=== PATIENT | male | born 1960 | race Caucasian/White ===

== ENCOUNTER 2020-12-24 12:31 | Observation (INO) | payer OTHER ==
[~2020-12-24] VITALS: Ht 180.3 cm; Wt 97.2 kg
[2020-12-24 13:18] LABS: BASO % 0.4 % (0.0-2.0); EOS # 0.1 (0.0-0.7); EOS % 0.9 % (0-4.0); GRAN # 5.9 (1.4-6.5); GRAN % 75.4 % (42.2-75.2); HEMATOCRIT 39.2 % (42.0-52.0); HEMOGLOBIN 12.8 g/dl (13.5-18.0); LYMPH # 1.2 (1.2-3.4); LYMPH % 15.1 % (20.0-51.0); MEAN CELL VOLUME 88 fl (80.0-100.0); MEAN CORPUSCULAR HEMOGLOBIN 29 pg (27.0-31.0); MEAN CORPUSCULAR HGB CONC 33 g/dl (33.0-37.0); MEAN PLATELET VOLUME 9.8 fl (7.4-10.4); MONO # 0.6 (0.1-0.6); MONO % 7.8 % (1.7-9.3); PLATELET COUNT 211 K/mm3 (130-400); RED BLOOD COUNT 4.44 M/mm3 (4.20-5.60); REDCELL DISTRIBUTION WIDTH-CV 13.5 % (11.5-14.5)
[2020-12-24 13:31] LABS: ALANINE AMINOTRANSFERASE 38 U/L (4-49); ALBUMIN 4.3 gm/dL (3.5-5.0); ALKALINE PHOSPHATASE 54 U/L (50-136); ANION GAP 7 mmol/L (7-16); AST,SGOT 40 U/L (15-37); BILIRUBIN,TOTAL 0.8 mg/dL (0.0-1.0); BLOOD UREA NITROGEN 40 mg/dL (9-20); CALCIUM 9.6 mg/dL (8.4-10.2); CARBON DIOXIDE 25 mmol/L (22-30); CHLORIDE 106 mmol/L (98-107); CREATININE, serum 2.88 (0.66-1.25); GLUCOSE 147 mg/dL (74-106); POTASSIUM 5.2 mmol/L (3.4-5.0); SODIUM 138 mmol/L (137-145); TOTAL PROTEIN 7.6 gm/dL (6.4-8.2)
[2020-12-24 13:47] LABS: TROPONIN-I < 0.012 ng/mL (0.000-0.035)
[2020-12-24 15:24] LABS: COLLECTION METHOD CLEAN CATCH
[2020-12-24 15:31] LABS: MUCOUS Present /lpf; PH 5 (5-8); URINE APPEARANCE Hazy; URINE BACTERIA None Seen /hpf; URINE BILIRUBIN Negative (NEGATIVE); URINE BLOOD Negative (NEGATIVE); URINE COLOR Yellow; URINE GLUCOSE Negative (NEGATIVE); URINE KETONE Negative (NEGATIVE); URINE LEUKOCYTE ESTERASE Negative (NEGATIVE); URINE NITRATE Negative (NEGATIVE); URINE PROTEIN(semi-quant) 1+ (NEGATIVE); URINE RBC 0-2 /hpf
[2020-12-24] MEDS ORDERED: ASPIRIN 81M81 MG/TA2 PO (15:55)
[2020-12-24] MEDS ORDERED: NORVASC 10MG10 MG PO (15:55)
[2020-12-24] MEDS ORDERED: WELLBUTRIN SR150 M1 PO (15:56)
[2020-12-24] MEDS ORDERED: HYGROTON 2525 MG/TAB PO (15:56)
[2020-12-24] MEDS ORDERED: GLUCOPHAGE500 MG/TAB PO (15:57)
[2020-12-24] MEDS ORDERED: NORMODYNE200 MG PO (15:57)
[2020-12-24] MEDS ORDERED: PRINIVIL40 MG PO (15:57)
[2020-12-24 16:35] VITALS: BP 125/75; PULSE 85; TEMP 98.9
[2020-12-24 16:38] VITALS: BP 125/75; PULSE 85; TEMP 98.9
--- NOTE | 2020-12-24 16:47 | NUR ---
PT ADMITTED AT THIS. NO S/S OF DISTRESS AT THIS TIME. PT DENIES HAVING CHEST PAIN. TELE MONITOR IN PLACE. PT ORIENTED TO ROOM. PENDING URINE COLLECTION. CALL-LIGHT IN REACH. BED IN LOW POSITION. WILL CONTINUE TO MONITOR.
[2020-12-24 17:32] LABS: TROPONIN-I 6 HR POST INITIAL < 0.012 ng/mL (0.000-0.034)
[2020-12-24 19:26] VITALS: BP 123/70; PULSE 89; TEMP 98.5
--- NOTE | 2020-12-24 21:39 | NUR ---
Pt is really difficult when it comes to meds.He refused his heparin and stated he takes only aspirin. Vss stable. Pain rated 0/10. Will continue to monitor.
[2020-12-25 01:04] VITALS: BP 137/74; PULSE 81; TEMP 99
[2020-12-25 05:15] VITALS: BP 124/80; PULSE 75; TEMP 98.8
[2020-12-25 06:46] LABS: CALCIUM 8.3 mg/dL (8.4-10.2); CREATININE, serum 1.75 (0.66-1.25); POTASSIUM 4.5 mmol/L (3.4-5.0)
[2020-12-25 08:32] VITALS: BP 126/78; PULSE 71; TEMP 98.4
--- NOTE | 2020-12-25 09:11 | NUR ---
SW met with the patient to discuss discharge plan. The patient lives in [place], [place] with his , Doris (ph#[phone]). He is in [place] for his job. 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 He has been staying at the [facility], while here. He reports independence with ADLs and does not have any DME. The patient's PCP is a Dr. Pink in [place] and he receives his medications from [facility]. The patient does not have a DPOA-HC and he was not interested in completing one while here. The patient states that he will probably return back to his hotel upon discharge. He states that his is on her way up here from [place] now. No additional needs at this time. *Discharge plan: home with *
[2020-12-25 10:29] LABS: SQUAMOUS EPITHELIAL None Seen /hpf; URINE BACTERIA None Seen /hpf; URINE RBC None Seen /hpf; URINE WBC None Seen /hpf
--- NOTE | 2020-12-25 10:58 | NUR ---
First visit from the student dean. No needs right now.
[2020-12-25 11:36] VITALS: BP 124/73; PULSE 70; TEMP 98.1
--- NOTE | 2020-12-25 16:07 | NUR ---
0700 PT RECEIVED RESTING IN BED. NO S/S OF DISTRESS. PT DENIES HAVING CHEST PAIN. PT REMINDED THAT HE NEEDS TO NOT DRINK OR EAT ANYTHING FOR HIS LEXISCAN THIS MORNING. 0900 INFORMED FROM [facility] THAT LEXISCAN WILL NOT BE DONE FOR THE PT TODAY. 1000 SPOUSE AT THE BEDSIDE AND STATES THAT SHE WILL TRY AND BRING PT'S HOME METFORMIN MEDICATION FOR THE PT FOR US TO HAVE IT REORDER. 1030 PROVIDER AND TEAM ROUNDED AT THE BEDSIDE WITH PT AND HIS SPOUSE. OK GIVEN FOR PT TO EAT. 1200 PT ATE HIS MEAL. NO S/S OF DISTRESS NOTICED. CALL-LIGHT IN REACH. BED IN LOW POSITION. WILL CONTINUE TO MONITOR.
[2020-12-25 16:52] VITALS: BP 114/86; BP 135/78; PULSE 106; PULSE 71; TEMP 98.4
[2020-12-25 20:03] VITALS: BP 121/76; PULSE 73; TEMP 98.6
--- NOTE | 2020-12-25 22:30 | NUR ---
Pt seems more compliant today. He was ok to get his heparin today. pain rated 0/10. Vss. Will continue to monitor.
[2020-12-26] VITALS (13 sets, daily range): BP systolic 106–143; BP diastolic 70–88; PULSE 66–87; TEMP 97.7–98.2
[2020-12-26 06:54] LABS: BASO % 0.4 % (0.0-2.0); EOS # 0.1 (0.0-0.7); EOS % 2.2 % (0-4.0); GRAN # 2.8 (1.4-6.5); GRAN % 61.9 % (42.2-75.2); HEMOGLOBIN 11.4 g/dl (13.5-18.0); LYMPH # 1.1 (1.2-3.4); LYMPH % 24.3 % (20.0-51.0); MEAN CELL VOLUME 88 fl (80.0-100.0); MEAN CORPUSCULAR HEMOGLOBIN 29 pg (27.0-31.0); MEAN CORPUSCULAR HGB CONC 33 g/dl (33.0-37.0); MEAN PLATELET VOLUME 9.8 fl (7.4-10.4); MONO # 0.5 (0.1-0.6); PLATELET COUNT 167 K/mm3 (130-400); RED BLOOD COUNT 3.92 M/mm3 (4.20-5.60); REDCELL DISTRIBUTION WIDTH-CV 13.2 % (11.5-14.5)
[2020-12-26 06:58] LABS: HEMATOCRIT 34.4 % (42.0-52.0)
[2020-12-26 07:00] LABS: MUCOR RACEMOSUS ALLERGEN COUNT <0.10 kU/L (())
[2020-12-26 07:23] LABS: CALCIUM 8.7 mg/dL (8.4-10.2); CHOLESTEROL RISK RATIO 5.4; CREATININE, serum 1.29 (0.66-1.25); POTASSIUM 4.6 mmol/L (3.4-5.0)
--- NOTE | 2020-12-26 08:20 | NUR ---
Pt awake and alert upon entry sitting in the recliner, no C/O pain at this time. Shift assessment complete, left Pt call light in reach.
--- NOTE | 2020-12-26 11:52 | NUR ---
NOTIFIED OF PATIENT HAVING CHEST PAIN AND NECK PAIN DURING TEST.
--- NOTE | 2020-12-26 20:36 | NUR ---
ALERT ANDOX4. DENIES ANY CHESTPAIN, LIGHTHEAD OR DIZZY. NS GOING AT 75MLS RT FA TO FLUSH KIDNEYS FROM CONTRAST TODAY. PT NOT HAPPY ABOUT STAYING BUT PLEASENT W NURSING, THOUGHT HE WAS GOING TO BE DC AFTER TEST TODAY. PM MEDS GIVEN. CALL LIGHT WI REACH. NEEDS MET.
--- NOTE | 2020-12-26 21:11 | NUR ---
TELE HAD CALLED TO SEE IF WE COULD APPLY HEART MONITOR. PT STATES THERE IS NOTHING WRONG W MY HEART DAY SHIFT NURSE WAS SUPPOSE TO GET THAT DISCONTINUED. CALLED JANELLE MEIER TO GET VELASQUEZ WAS BUSY WILL CALL NURSE BACK.
--- NOTE | 2020-12-26 22:04 | NUR ---
ORDERS FOR DIET AND INSULIN MOD SLIDING SCALE TO BE PLACED, REVIEW MED REC AND REPORTED FALCON CATH ALONG W CARDIZEM GTT RATE. DR VILLARREAL WILL SEE IN AM.
[2020-12-27 04:26] VITALS: BP 137/79; PULSE 72; TEMP 97.8
--- NOTE | 2020-12-27 05:42 | NUR ---
Rested through the night without incident. Melvin Rodriguez today . Needs met.
[2020-12-27 07:12] LABS: BASO % 0.5 % (0.0-2.0); EOS # 0.1 (0.0-0.7); GRAN # 2.7 (1.4-6.5); GRAN % 63.6 % (42.2-75.2); HEMOGLOBIN 11.8 g/dl (13.5-18.0); LYMPH # 0.9 (1.2-3.4); LYMPH % 20.9 % (20.0-51.0); MEAN CELL VOLUME 90 fl (80.0-100.0); MEAN CORPUSCULAR HEMOGLOBIN 29 pg (27.0-31.0); MEAN CORPUSCULAR HGB CONC 32 g/dl (33.0-37.0); MONO # 0.5 (0.1-0.6); MONO % 11.8 % (1.7-9.3); PLATELET COUNT 169 K/mm3 (130-400); RED BLOOD COUNT 4.09 M/mm3 (4.20-5.60); REDCELL DISTRIBUTION WIDTH-CV 13.2 % (11.5-14.5)
[2020-12-27 07:13] LABS: CALCIUM 8.4 mg/dL (8.4-10.2); CREATININE, serum 1.33 (0.66-1.25); HEMATOCRIT 36.6 % (42.0-52.0); POTASSIUM 4.4 mmol/L (3.4-5.0)
[2020-12-27 07:36] VITALS: BP 148/88; PULSE 70; TEMP 98.2
--- NOTE | 2020-12-27 08:11 | NUR ---
PT RESTING IN RECLINER. NS RUNNING AT 75ML/HR. HEART RATE AND RHYTHM NORMAL. ALL LUNG FIELD CLEAR TO AUSCULTATION. PATIENT DENIES ANY PAIN AT THIS TIME, STATES HE JUST HAS DISCOMFORT. MORNING MEDICATIONS GIVEN. PT STATES HE IS EAGER TO BE DISCHARGED. NO OTHER NEEDS AT THIS TIME. CALL LIGHT WITHIN REACH, WILL CONTINUE TO MONITOR.
[2020-12-27] MEDS ORDERED: LIPITOR 40MG TA40 MG PO (09:56)
== END 2020-12-27 11:00 | disposition home or self-care (01) ==
LOC: COL.ER 12:31 → MEDICAL 14:14
PROVIDERS: Emergency Medicine; Physician Assistant; ADMIT Internal Medicine
DX: R07.89 Other chest pain (principal); R53.83 Other fatigue; M54.2 Cervicalgia; G89.29 Other chronic pain; N17.9 Acute kidney failure, unspecified; E11.9 Type 2 diabetes mellitus without complications; I10 Essential (primary) hypertension; E78.2 Mixed hyperlipidemia; Z20.822 Contact with and (suspected) exposure to COVID-19; E78.5 Hyperlipidemia, unspecified; J44.9 Chronic obstructive pulmonary disease, unspecified; I08.1 Rheumatic disorders of both mitral and tricuspid valves; Z79.84 Long term (current) use of oral hypoglycemic drugs; Z82.49 Family history of ischemic heart disease and other diseases of the circulatory system; Z79.899 Other long term (current) drug therapy; Z85.47 Personal history of malignant neoplasm of testis; Z87.891 Personal history of nicotine dependence; Z79.82 Long term (current) use of aspirin
CPT/HCPCS: 99233-AI; A9500; G0378; J1644; J2785; J7030; J7120; Q9967